=== PATIENT | male | born 1995 | race Caucasian/White ===

== ENCOUNTER 2018-12-02 12:10 | Inpatient (IN) | payer OTHER | END 2018-12-03 17:30 | disposition home or self-care (01) | LOC: ER 12:10 → PACU OUT 20:00 → SUR 3N 21:08 → PACU OUT 21:08 → PACU 20:46 → SUR 3N 21:25 ==

== ENCOUNTER 2018-12-11 09:58 | Emergency (ER) | payer OTHER ==
[~2018-12-11] VITALS: Ht 167.6 cm; Wt 47.0 kg
[~2018-12-11 09:58] MED LIST: IBUP-1985 PO
[2018-12-11 10:11] VITALS: BP 110/62
== END 2018-12-11 12:34 | disposition left against medical advice (07) ==
LOC: ER 09:59
DX: Z53.21 Procedure and treatment not carried out due to patient leaving prior to being seen by health care provider (principal)

== ENCOUNTER 2023-12-31 01:53 | Emergency (ER) | payer MEDICAID ==
[~2023-12-31] VITALS: Ht 170.2 cm; Wt 54.5 kg
[2023-12-31] MEDS: HYDROcodone/acetaminophen 5mg/325mg tablet PO ONE (03:29)
[2023-12-31] MEDS: ondansetron 4mg rapidly disintigrating tab PO ONE (03:29)
[2023-12-31] MEDS: ketorolac tromethamine 15mg/ml inj. IM ONE (03:30)
[2023-12-31] MEDS: bacitracin 15gm ointment TP ONE (04:10)
[2023-12-31] MEDS: TETanus/Pertussis (Acell)/Diphther VAC/PF (Tdap-Adult) 0.5ml syringe IMVAC ONE (04:11)
[2023-12-31] MEDS ORDERED: HYDR-3965 PO (04:47)
[2023-12-31] MEDS ORDERED: CEPH-585 PO (04:47)
[2023-12-31] MEDS: cephalexin 250mg capsule PO ONE (04:53)
[2023-12-31 05:19] VITALS: BP 106/57; PULSE 86; RESP 16; TEMP 98.7; O2SAT 100
== END 2023-12-31 05:24 | disposition home or self-care (01) ==
LOC: ER 01:53
DX: S93.114A Dislocation of interphalangeal joint of right lesser toe(s), initial encounter (principal); F12.90 Cannabis use, unspecified, uncomplicated; Z79.899 Other long term (current) drug therapy; W10.8XXA Fall (on) (from) other stairs and steps, initial encounter; Y93.89 Activity, other specified; Y92.89 Other specified places as the place of occurrence of the external cause; Y99.8 Other external cause status
CPT/HCPCS: 28660; 73660; 90471; 90715; 96372; 99284; A6222; J1885; 28515; A6449